=== PATIENT | male | born 1970 | race Two or more races ===

== ENCOUNTER → 2018-10-16 | Emergency (ER) | payer OTHER | END | disposition left against medical advice (07) | LOC: ER 05:12 | DX: S61.219A Laceration without foreign body of unspecified finger without damage to nail, initial encounter (principal); Z53.21 Procedure and treatment not carried out due to patient leaving prior to being seen by health care provider; X58.XXXA Exposure to other specified factors, initial encounter; Y93.9 Activity, unspecified; Y92.69 Other specified industrial and construction area as the place of occurrence of the external cause; Y99.8 Other external cause status ==